=== PATIENT | male | born 1965 | race Caucasian/White ===

== ENCOUNTER 2018-08-24 15:44 | Emergency (ER) | payer SELFPAY ==
[~2018-08-24] VITALS: Ht 167.6 cm; Wt 71.7 kg
[2018-08-24 16:07] VITALS: Ht 167.6 cm; Wt 71.7 kg
[2018-08-24 17:09] VITALS: BP 134/76
== END 2018-08-24 17:09 | disposition home or self-care (01) ==
LOC: ED 15:44
DX: L02.415 Cutaneous abscess of right lower limb (principal); Z98.890 Other specified postprocedural states